=== PATIENT | female | born 1985 | race African-American/Black ===

== ENCOUNTER 2017-07-22 01:37 | Emergency (ER) | payer SELFPAY, OTHER ==
[2017-07-22] MEDS: traMADol 50 MG TABLET PO (02:12)
[2017-07-22] MEDS: NAPROXEN 500 MG TABLET PO (02:12)
== END 2017-07-22 02:27 | disposition home or self-care (01) ==
LOC: ER 01:37
DX: S70.12XA Contusion of left thigh, initial encounter (principal); G89.29 Other chronic pain; I10 Essential (primary) hypertension; Z98.51 Tubal ligation status; Y08.89XA Assault by other specified means, initial encounter; Y93.89 Activity, other specified; Y92.89 Other specified places as the place of occurrence of the external cause; Y99.8 Other external cause status
CPT/HCPCS: 99283